=== PATIENT | male | born 1960 | race Caucasian/White ===

== ENCOUNTER 2024-03-20 21:31 | Emergency (ER) | payer MEDICARE, MEDICAID ==
[~2024-03-20] VITALS: Ht 177.8 cm; Wt 102.1 kg
[2024-03-21] MEDS ORDERED: GABAPENTIN 300 MG CAPSULE ONE (04:08)
[2024-03-21] MEDS: GABAPENTIN 100 MG CAPSULE PO ONE (04:16)
[2024-03-21 16:10] VITALS: BP 131/81; TEMP 98.2; O2SAT 97
== END 2024-03-21 16:11 ==
LOC: ER 21:44
DX: Z00.00 Encounter for general adult medical examination without abnormal findings (principal)

== ENCOUNTER 2024-06-15 03:04 | Inpatient (IN) | payer MEDICARE, OTHER ==
[~2024-06-15] VITALS: Ht 182.9 cm; Wt 108.9 kg
[2024-06-15] MEDS: FUROSEMIDE 40 MG/4 ML VIAL IV ONE (04:00)
[2024-06-15] MEDS ORDERED: FUROSEMIDE 40 MG/4 ML VIAL ONE (04:00)
[2024-06-15 04:01] LABS: BASOPHILS % (AUTO) 0.6 % (0.0-2.0); EOSINOPHILS # (AUTO) 0.3 K/uL (0.0-0.7); EOSINOPHILS % (AUTO) 4.1 % (0.0-6.0); HEMATOCRIT 36 % (39-51); HEMOGLOBIN 11.8 g/dL (13.5-17.5); LYMPHOCYTES % (AUTO) 14.1 % (20.0-44.0); MEAN CORPUSCULAR HEMOGLOBIN 31 PG (26.0-33.0); MEAN CORPUSCULAR HGB CONC 33 g/dl (31.0-36.0); MEAN CORPUSCULAR VOLUME 92 fL (80-96); MONOCYTES # (AUTO) 0.9 K/uL (0.1-1.30); MONOCYTES % (AUTO) 13.2 % (2.0-12.0); NEUTROPHILS # (AUTO) 4.7 K/uL (1.8-8.9); PLATELET COUNT (AUTO) 100 K/uL (150-450); RED BLOOD CELL COUNT(AUTO) 3.87 MIL/uL (4.5-6.0); RED CELL DISTRIBUTION WIDTH 18.4 % (11.5-15.0); WHITE BLOOD COUNT (AUTO) 6.8 K/uL (4.3-11.0)
[2024-06-15 04:08] LABS: CALCIUM, SERUM 8.3 mg/dL (8.5-10.1); CREATININE 1.5 mg/dL (0.6-1.3); POTASSIUM 4.2 mmol/L (3.5-5.1)
[2024-06-15 04:20] LABS: ALBUMIN 2.2 g/dL (3.4-5.0); BILIRUBIN,TOTAL 1.9 mg/dL (0.2-1.0); TOTAL PROTEIN, SERUM 5.5 g/dL (6.4-8.2)
[2024-06-15] MEDS ORDERED: ONDANSETRON HCL/PF 4 MG/2 ML VIAL IVP PRN (06:30)
[2024-06-15] MEDS ORDERED: Z GUARD REMEDY 4 OZ OINT TP PRN (06:30)
[2024-06-15 07:51] LABS: BASOPHILS # (AUTO) 0.1 K/uL (0.0-0.2); BASOPHILS % (AUTO) 1.6 % (0.0-2.0); EOSINOPHILS # (AUTO) 0.3 K/uL (0.0-0.7); EOSINOPHILS % (AUTO) 3.8 % (0.0-6.0); HEMATOCRIT 37 % (39-51); HEMOGLOBIN 12.5 g/dL (13.5-17.5); LYMPHOCYTES # (AUTO) 1.1 K/uL (0.8-4.8); LYMPHOCYTES % (AUTO) 15.5 % (20.0-44.0); MEAN CORPUSCULAR HEMOGLOBIN 31 PG (26.0-33.0); MEAN CORPUSCULAR HGB CONC 33 g/dl (31.0-36.0); MEAN CORPUSCULAR VOLUME 93 fL (80-96); MONOCYTES % (AUTO) 14.1 % (2.0-12.0); NEUTROPHILS # (AUTO) 4.4 K/uL (1.8-8.9); PLATELET COUNT (AUTO) 116 K/uL (150-450); RED BLOOD CELL COUNT(AUTO) 4.03 MIL/uL (4.5-6.0); RED CELL DISTRIBUTION WIDTH 18.1 % (11.5-15.0); WHITE BLOOD COUNT (AUTO) 6.8 K/uL (4.3-11.0)
[2024-06-15 08:03] LABS: ALANINE AMINOTRANSFERASE 38 U/L (12-78); ALBUMIN 2.3 g/dL (3.4-5.0); ALKALINE PHOSPHATASE 121 U/L (46-116); ASPARTATE AMINOTRANSFERASE 49 U/L (15-37); BILIRUBIN,DIRECT 0.6 mg/dL (0.0-0.2); BILIRUBIN,TOTAL 2.4 mg/dL (0.2-1.0); CALCIUM, SERUM 8.6 mg/dL (8.5-10.1); CARBON DIOXIDE 29 mmol/L (21-32); CHLORIDE 107 mmol/L (98-107); CREATININE 1.6 mg/dL (0.6-1.3); GLUCOSE 101 mg/dL (74-106); MAGNESIUM 1.5 mg/dL (1.8-2.4); PHOSPHORUS 3.2 mg/dL (2.5-4.9); POTASSIUM 3.9 mmol/L (3.5-5.1); SODIUM SERUM 141 mmol/L (136-145); TOTAL PROTEIN, SERUM 6.1 g/dL (6.4-8.2); UREA NITROGEN, BLOOD 27 mg/dL (7-18)
[2024-06-15 09:00] VITALS: BP 140/98; TEMP 97.7; O2SAT 97
[2024-06-15] MEDS: FUROSEMIDE 20 MG/2 ML VIAL IV SCH (09:28)
[2024-06-15] MEDS: PANTOPRAZOLE 40 MG VIAL IV SCH (09:28)
[2024-06-15] MEDS ORDERED: GABA300C PO (10:40)
[2024-06-15] MEDS ORDERED: TAMS-12 PO (10:40)
[2024-06-15] MEDS ORDERED: FURO40TA5 PO (10:40)
[2024-06-15] MEDS ORDERED: DILT-32 PO (10:40)
[2024-06-15] MEDS ORDERED: CARV6.252 PO (10:40)
[2024-06-15] MEDS ORDERED: SPIR100T PO (10:40)
[2024-06-15] MEDS ORDERED: LEVO150T8 PO (10:40)
[2024-06-15 10:42] VITALS: BP 140/98; TEMP 97.7; O2SAT 97
[2024-06-15] MEDS: FUROSEMIDE 40 MG/4 ML VIAL IV SCH (11:06)
[2024-06-15] MEDS: MAGNESIUM OXIDE 400 MG TABLET PO ONE (11:06)
[2024-06-15 11:46] VITALS: BP 119/75; TEMP 97.8; O2SAT 98
[2024-06-15 17:39] LABS: APPEARANCE,URINE CLEAR (CLEAR); BILIRUBIN,URINE NEGATIVE (NEGATIVE); BLOOD, URINE TRACE-INTA Ery/uL (NEGATIVE); COLOR,URINE YELLOW (YELLOW); CREATININE, URINE < 13.0 MG/DL (30.0-125.0); KETONES,URINE NEGATIVE (NEGATIVE); LEUKOCYTE ESTERASE ,URINE TRACE (NEGATIVE); NITRITE, URINE NEGATIVE (NEGATIVE); PH,URINE 6.5 (5.0-8.0); PROTEIN,URINE NEGATIVE (NEGATIVE); UGLUCOSE NEGATIVE (NEGATIVE); URINE SODIUM, RANDOM 118 mmol/l (40-220); URINE TOTAL PROTEIN 1.2 mg/dL (0-11.9)
[2024-06-15 18:16] LABS: ADD URINE CULTURE NO; BACTERIA,URINE None seen /HPF (None Seen); SQUAMOUS EPITHELIAL CELL,UR 0-2 /HPF (None Seen)
[2024-06-15 18:27] LABS: EOSINOPHIL,URINE None Seen
[2024-06-15 20:00] VITALS: BP 120/83; TEMP 98.1; O2SAT 98
[2024-06-16 06:51] LABS: BASOPHILS # (AUTO) 0.1 K/uL (0.0-0.2); BASOPHILS % (AUTO) 1.3 % (0.0-2.0); EOSINOPHILS # (AUTO) 0.3 K/uL (0.0-0.7); EOSINOPHILS % (AUTO) 4.1 % (0.0-6.0); HEMATOCRIT 41 % (39-51); HEMOGLOBIN 13.7 g/dL (13.5-17.5); LYMPHOCYTES # (AUTO) 1.1 K/uL (0.8-4.8); LYMPHOCYTES % (AUTO) 14.9 % (20.0-44.0); MEAN CORPUSCULAR HEMOGLOBIN 31 PG (26.0-33.0); MEAN CORPUSCULAR HGB CONC 34 g/dl (31.0-36.0); MEAN CORPUSCULAR VOLUME 92 fL (80-96); MONOCYTES % (AUTO) 14.6 % (2.0-12.0); NEUTROPHILS # (AUTO) 4.6 K/uL (1.8-8.9); NEUTROPHILS % (AUTO) 65.1 % (43.0-81.0); PLATELET COUNT (AUTO) 127 K/uL (150-450); RED BLOOD CELL COUNT(AUTO) 4.43 MIL/uL (4.5-6.0); RED CELL DISTRIBUTION WIDTH 18.1 % (11.5-15.0); WHITE BLOOD COUNT (AUTO) 7.1 K/uL (4.3-11.0)
[2024-06-16 07:00] VITALS: BP 113/73; TEMP 97.7; O2SAT 92
[2024-06-16 07:00] LABS: BILIRUBIN,TOTAL 2.5 mg/dL (0.2-1.0); CALCIUM, SERUM 8.8 mg/dL (8.5-10.1); CREATININE 1.4 mg/dL (0.6-1.3); MAGNESIUM 1.2 mg/dL (1.8-2.4); PHOSPHORUS 3.7 mg/dL (2.5-4.9); POTASSIUM 3.8 mmol/L (3.5-5.1); TOTAL PROTEIN, SERUM 5.5 g/dL (6.4-8.2)
[2024-06-16] MEDS: CARVEDILOL 6.25 MG TABLET PO SCH (09:53)
[2024-06-16] MEDS: CLOTRIMAZOLE/BETAMETASONE DIPROPIONATE 15 GM TUBE TP SCH (09:54)
[2024-06-16] MEDS: Magnesium 1GM/D5W 100ML PREMIX 100 ML IV SCH (11:39)
[2024-06-16 16:00] VITALS: BP 101/78; TEMP 98.1; O2SAT 98
[2024-06-16] MEDS: GABAPENTIN 300 MG CAPSULE PO SCH (17:00)
[2024-06-16 20:00] VITALS: BP 102/58; TEMP 98.1; O2SAT 94
[2024-06-16] MEDS: CLINDAMYCIN 600 MG in IV NS 0.9% 46 ML IV SCH (20:56)
[2024-06-16] MEDS: TAMSULOSIN 0.4 MG CAP.SR.24H PO SCH (21:42)
[2024-06-17 06:09] LABS: PTH, INTACT 4 pg/mL (15-65)
[2024-06-17 07:00] VITALS: BP 108/63; TEMP 97.7; O2SAT 94
[2024-06-17 07:30] LABS: BASOPHILS # (AUTO) 0.1 K/uL (0.0-0.2); BASOPHILS % (AUTO) 1.2 % (0.0-2.0); EOSINOPHILS # (AUTO) 0.2 K/uL (0.0-0.7); EOSINOPHILS % (AUTO) 2.8 % (0.0-6.0); HEMATOCRIT 39 % (39-51); HEMOGLOBIN 12.8 g/dL (13.5-17.5); LYMPHOCYTES # (AUTO) 0.9 K/uL (0.8-4.8); LYMPHOCYTES % (AUTO) 11.9 % (20.0-44.0); MEAN CORPUSCULAR HEMOGLOBIN 30 PG (26.0-33.0); MEAN CORPUSCULAR HGB CONC 33 g/dl (31.0-36.0); MEAN CORPUSCULAR VOLUME 91 fL (80-96); MONOCYTES % (AUTO) 13.4 % (2.0-12.0); NEUTROPHILS # (AUTO) 5.2 K/uL (1.8-8.9); NEUTROPHILS % (AUTO) 70.7 % (43.0-81.0); PLATELET COUNT (AUTO) 129 K/uL (150-450); RED BLOOD CELL COUNT(AUTO) 4.25 MIL/uL (4.5-6.0); RED CELL DISTRIBUTION WIDTH 17.8 % (11.5-15.0); WHITE BLOOD COUNT (AUTO) 7.3 K/uL (4.3-11.0)
[2024-06-17 08:05] LABS: CALCIUM, SERUM 9.1 mg/dL (8.5-10.1); CREATININE 1.2 mg/dL (0.6-1.3); POTASSIUM 4.4 mmol/L (3.5-5.1)
[2024-06-17] MEDS: LEVOTHYROXINE SODIUM 75 MCG TABLET PO SCH (08:17)
[2024-06-17] MEDS: SPIRONOLACTONE 25 MG TABLET PO SCH (09:00)
[2024-06-17] MEDS: DILTIAZEM HCL CD 120 MG PO SCH (09:01)
[2024-06-17] MEDS: PANTOPRAZOLE 40 MG TABLET.DR PO SCH (09:02)
[2024-06-17] MEDS: APIXABAN 5 MG TABLET PO SCH (09:03)
[2024-06-17] MEDS: Magnesium 1GM/D5W 100ML PREMIX 100 ML IV SCH (10:00)
[2024-06-17] MEDS: ACETAMINOPHEN 325 MG TABLET PO PRN (12:11)
[2024-06-17] MEDS: CLINDAMYCIN HCL 150 MG CAPSULE PO SCH (12:11)
[2024-06-17 13:08] LABS: *SPE A/G RATIO 0.9 (0.7-1.7); *SPE ALBUMIN 2.4 g/dL (2.9-4.4); *SPE ALPHA-1-GLOBULIN 0.2 g/dL (0.0-0.4); *SPE ALPHA-2-GLOBULIN 0.4 g/dL (0.4-1.0); *SPE BETA GLOBULIN 0.8 g/dL (0.7-1.3); *SPE GLOBULIN, TOTAL 2.8 g/dL (2.2-3.9); *SPE M-SPIKE Not Observed g/dL (Not Observed); *SPE PROTEIN TOTAL 5.2 g/dL (6.0-8.5); *SPEGAMMA GLOBULIN 1.4 g/dL (0.4-1.8)
[2024-06-17 16:00] VITALS: BP 105/76; TEMP 97.3; O2SAT 96
[2024-06-17] MEDS: LACTULOSE 10 G/15 ML UDC (PYXIS) PO SCH (17:03)
[2024-06-17 20:00] VITALS: BP 132/75; TEMP 97.9; O2SAT 96
[2024-06-18 06:45] LABS: BILIRUBIN,DIRECT 0.7 mg/dL (0.0-0.2); BILIRUBIN,TOTAL 2.8 mg/dL (0.2-1.0); TOTAL PROTEIN, SERUM 5.5 g/dL (6.4-8.2)
[2024-06-18 08:00] VITALS: BP 113/81; TEMP 98.1; O2SAT 95
[2024-06-18] MEDS ORDERED: LACTULOSE 10 G/15 ML UDC (PYXIS) PO PRN (10:30)
[2024-06-18 16:00] VITALS: BP 122/76; TEMP 98.4; O2SAT 96
[2024-06-18 20:00] VITALS: BP 112/67; TEMP 98.2; O2SAT 97
[2024-06-19 07:27] LABS: BILIRUBIN,DIRECT 0.6 mg/dL (0.0-0.2); BILIRUBIN,TOTAL 1.9 mg/dL (0.2-1.0); TOTAL PROTEIN, SERUM 5.5 g/dL (6.4-8.2)
[2024-06-19 08:00] VITALS: BP 122/75; TEMP 97.7; O2SAT 96
[2024-06-19] MEDS: ALBUTEROL FS 2.5 MG/3 ML VIAL.NEB NEB PRN (12:53)
[2024-06-19 13:01] VITALS: O2SAT 95
[2024-06-19 13:16] VITALS: O2SAT 95
[2024-06-19 16:00] VITALS: BP 122/86; TEMP 98.2; O2SAT 98
[2024-06-19 20:00] VITALS: BP 120/83; TEMP 98.1; O2SAT 98
[2024-06-19 20:03] VITALS: BP 120/83; TEMP 98.1; O2SAT 98
[2024-06-20 07:16] LABS: BASOPHILS # (AUTO) 0.1 K/uL (0.0-0.2); BASOPHILS % (AUTO) 0.7 % (0.0-2.0); EOSINOPHILS # (AUTO) 0.4 K/uL (0.0-0.7); EOSINOPHILS % (AUTO) 5.1 % (0.0-6.0); HEMATOCRIT 40 % (39-51); LYMPHOCYTES # (AUTO) 1.4 K/uL (0.8-4.8); MEAN CORPUSCULAR HEMOGLOBIN 31 PG (26.0-33.0); MEAN CORPUSCULAR HGB CONC 33 g/dl (31.0-36.0); MEAN CORPUSCULAR VOLUME 94 fL (80-96); MONOCYTES # (AUTO) 1.2 K/uL (0.1-1.30); MONOCYTES % (AUTO) 14.5 % (2.0-12.0); NEUTROPHILS # (AUTO) 5.1 K/uL (1.8-8.9); NEUTROPHILS % (AUTO) 62.7 % (43.0-81.0); PLATELET COUNT (AUTO) 129 K/uL (150-450); RED BLOOD CELL COUNT(AUTO) 4.24 MIL/uL (4.5-6.0); RED CELL DISTRIBUTION WIDTH 18.6 % (11.5-15.0); WHITE BLOOD COUNT (AUTO) 8.1 K/uL (4.3-11.0)
[2024-06-20 08:00] VITALS: BP 116/80; TEMP 97.9; O2SAT 99
[2024-06-20 08:04] LABS: ALBUMIN 1.9 g/dL (3.4-5.0); BILIRUBIN,TOTAL 1.6 mg/dL (0.2-1.0); CALCIUM, SERUM 8.3 mg/dL (8.5-10.1); CREATININE 1.2 mg/dL (0.6-1.3); MAGNESIUM 1.8 mg/dL (1.8-2.4); PHOSPHORUS 3.3 mg/dL (2.5-4.9); POTASSIUM 4.6 mmol/L (3.5-5.1); TOTAL PROTEIN, SERUM 5.5 g/dL (6.4-8.2)
[2024-06-20] MEDS: LACTULOSE 10 G/15 ML UDC (PYXIS) PO SCH (14:53)
[2024-06-20 15:41] VITALS: BP 124/91; TEMP 97.2; O2SAT 98
[2024-06-20 20:00] VITALS: BP 17/89; TEMP 98.4; O2SAT 98
[2024-06-21 08:00] VITALS: TEMP 97.9; O2SAT 96
[2024-06-21] MEDS ORDERED: PNEUMOCOCCAL 23-VAL P-SAC VAC 0.5 ML VIAL SQ ONE (13:30)
[2024-06-21 16:00] VITALS: BP 128/77; TEMP 98.2; O2SAT 99
[2024-06-21 20:01] VITALS: BP 103/82; TEMP 97.9; O2SAT 100
[2024-06-22 07:30] VITALS: BP 115/76; TEMP 98.1; O2SAT 93
[2024-06-22 09:06] VITALS: BP 115/76
[2024-06-22] MEDS: PNEUMOC 20-VAL CONJ-DIP CRM/PF 0.5 ML SYRINGE IM ONE (12:40)
[2024-06-22] MEDS ORDERED: PANT40TA49 PO (15:39)
[2024-06-22] MEDS ORDERED: ALBUT2 NEB (15:39)
[2024-06-22] MEDS ORDERED: CLOT15CR5 TP (15:39)
[2024-06-22] MEDS ORDERED: LACT10SO58 PO (15:39)
== END 2024-06-22 18:15 | disposition home or self-care (01) | DRG 602 ==
LOC: ER 03:05 → MED 06:29 → TELE 08:34 → MED 14:14
PROVIDERS: ATTEND Nurse Practitioner Acute Care
DX: L03.116 Cellulitis of left lower limb (principal); I50.33 Acute on chronic diastolic (congestive) heart failure; I13.0 Hypertensive heart and chronic kidney disease with heart failure and stage 1 through stage 4 chronic kidney disease, or unspecified chronic kidney disease; E44.0 Moderate protein-calorie malnutrition; N17.9 Acute kidney failure, unspecified; L03.115 Cellulitis of right lower limb; N49.2 Inflammatory disorders of scrotum; D69.6 Thrombocytopenia, unspecified; N48.89 Other specified disorders of penis; E88.09 Other disorders of plasma-protein metabolism, not elsewhere classified; N44.8 Other noninflammatory disorders of the testis; D64.9 Anemia, unspecified; E03.9 Hypothyroidism, unspecified; E83.42 Hypomagnesemia; M89.8X9 Other specified disorders of bone, unspecified site; N18.9 Chronic kidney disease, unspecified; Z95.0 Presence of cardiac pacemaker; Z86.19 Personal history of other infectious and parasitic diseases; E80.6 Other disorders of bilirubin metabolism; R74.01 Elevation of levels of liver transaminase levels; Z68.32 Body mass index [BMI] 32.0-32.9, adult; R94.6 Abnormal results of thyroid function studies
CPT/HCPCS: 36415; 71045-TC; 76536-TC; 76705-TC; 76770-TC; 78226; 80048-TC; 80053-TC; 80061-TC; 80076-TC; 81001; 82140-TC; 82550-TC; 82570-TC; 83690-TC; 83735-TC; 83880; 83970; 84100-TC; 84155; 84165; 84300-TC; 84439-TC; 84443-TC; 84484-TC; 85025-TC; 93307-TC; 94799-TC; 97112-TC; 97116-TC; 97530-TC; A4223; A9537; G0378; J1940; J2470; J3475; J3490

== ENCOUNTER 2025-02-19 21:50 | Inpatient (IN) | payer MEDICAID, OTHER ==
[~2025-02-19] VITALS: Ht 162.6 cm; Wt 91.6 kg
[~2025-02-19 21:50] MED LIST: ALBUT2 NEB; CARV6.252 PO; CLOT15CR5 TP; DILT-32 PO; FURO40TA5 PO; GABA300C PO; LACT10SO58 PO; LEVO150T8 PO; PANT40TA49 PO; SPIR100T PO; TAMS-12 PO
[2025-02-19 23:43] LABS: BASOPHILS # (AUTO) 0.1 K/uL (0.0-0.2); BASOPHILS % (AUTO) 0.9 % (0.0-2.0); EOSINOPHILS # (AUTO) 1.2 K/uL (0.0-0.7); EOSINOPHILS % (AUTO) 18.6 % (0.0-6.0); HEMATOCRIT 34 % (39-51); HEMOGLOBIN 11.4 g/dL (13.5-17.5); LYMPHOCYTES # (AUTO) 1.2 K/uL (0.8-4.8); LYMPHOCYTES % (AUTO) 18.4 % (20.0-44.0); MEAN CORPUSCULAR HEMOGLOBIN 32 PG (26.0-33.0); MEAN CORPUSCULAR HGB CONC 34 g/dl (31.0-36.0); MEAN CORPUSCULAR VOLUME 94 fL (80-96); MONOCYTES # (AUTO) 0.5 K/uL (0.1-1.30); MONOCYTES % (AUTO) 8.4 % (2.0-12.0); NEUTROPHILS # (AUTO) 3.5 K/uL (1.8-8.9); NEUTROPHILS % (AUTO) 53.7 % (43.0-81.0); PLATELET COUNT (AUTO) 108 K/uL (150-450); RED BLOOD CELL COUNT(AUTO) 3.58 MIL/uL (4.5-6.0); RED CELL DISTRIBUTION WIDTH 17.8 % (11.5-15.0); WHITE BLOOD COUNT (AUTO) 6.5 K/uL (4.3-11.0)
[2025-02-19 23:55] LABS: LACTIC ACID 1.3 mmol/L (0.4-2.0)
[2025-02-19 23:59] LABS: CALCIUM, SERUM 8.3 mg/dL (8.5-10.1); CARBON DIOXIDE 23 mmol/L (21-32); CHLORIDE 111 mmol/L (98-107); CREATININE 0.9 mg/dL (0.6-1.3); GLUCOSE 98 mg/dL (74-106); SODIUM SERUM 143 mmol/L (136-145); UREA NITROGEN, BLOOD 14 mg/dL (7-18)
[2025-02-20 00:04] LABS: ALANINE AMINOTRANSFERASE 28 U/L (12-78); ALBUMIN 1.9 g/dL (3.4-5.0); ALKALINE PHOSPHATASE 215 U/L (46-116); ASPARTATE AMINOTRANSFERASE 30 U/L (15-37); BILIRUBIN,DIRECT 0.5 mg/dL (0.0-0.2); BILIRUBIN,TOTAL 1.6 mg/dL (0.2-1.0); TOTAL PROTEIN, SERUM 6.2 g/dL (6.4-8.2)
[2025-02-20 00:06] LABS: ACETAMINOPHEN <10 ug/ml (10-30); ALCOHOL, BLOOD < 3 mg/dL (0-10); SALICYLATE < 0.2 mg/dL (2.8-20.0)
[2025-02-20 00:46] LABS: APPEARANCE,URINE CLEAR (CLEAR); BILIRUBIN,URINE NEGATIVE (NEGATIVE); BLOOD, URINE NEGATIVE Ery/uL (NEGATIVE); COLOR,URINE YELLOW (YELLOW); KETONES,URINE NEGATIVE (NEGATIVE); LEUKOCYTE ESTERASE ,URINE NEGATIVE (NEGATIVE); NITRITE, URINE NEGATIVE (NEGATIVE); PROTEIN,URINE NEGATIVE (NEGATIVE); UGLUCOSE NEGATIVE (NEGATIVE)
[2025-02-20 01:02] LABS: AMPHETAMINE, URINE NEGATIVE (NEGATIVE); BARBITURATE, URINE NEGATIVE (NEGATIVE); BENZODIAZEPINE, URINE NEGATIVE (NEGATIVE); CANNABINOID, URINE NEGATIVE (NEGATIVE); COCCAINE, URINE NEGATIVE (NEGATIVE); OPIATE, URINE NEGATIVE (NEGATIVE); PHENCYCLIDINE SCREEN,URINE NEGATIVE (NEGATIVE)
[2025-02-20 01:10] LABS: ADD URINE CULTURE NO; BACTERIA,URINE Few /HPF (None Seen); RBC,URINE 0-2 /HPF (0-2); SQUAMOUS EPITHELIAL CELL,UR Moderate /HPF (None Seen)
[2025-02-20] MEDS ORDERED: Z GUARD REMEDY 4 OZ OINT TP PRN (02:00)
[2025-02-20] MEDS ORDERED: ACETAMINOPHEN 325 MG TABLET PO PRN (02:00)
[2025-02-20] MEDS ORDERED: MAGNESIUM HYDROXIDE 30 ML UDC PO PRN (02:00)
[2025-02-20] MEDS: ENOXAPARIN SODIUM 40 MG/0.4 ML DISP.SYRIN SQ SCH (02:00)
[2025-02-20] MEDS ORDERED: ONDANSETRON HCL/PF 4 MG/2 ML VIAL IVP PRN (02:00)
[2025-02-20 02:58] LABS: T4 (THYROXINE) 4.7 ug/dL (4.7-13.3)
[2025-02-20] MEDS ORDERED: ENOXAPARIN SODIUM 40 MG/0.4 ML DISP.SYRIN SQ ONE (03:54)
[2025-02-20] MEDS ORDERED: LACTULOSE UDC 200 G in SODIUM CHLORIDE IRRIG SOLUTION 400 ML IR SCH ×2 (04:00→07:30)
[2025-02-20 04:02] VITALS: BP 128/96; TEMP 97.5; O2SAT 95
[2025-02-20] MEDS: PANTOPRAZOLE 40 MG TABLET.DR PO SCH (07:46)
[2025-02-20 08:30] VITALS: BP 94/63; TEMP 97.5; O2SAT 97
[2025-02-20] MEDS: LACTULOSE UDC 200 G in SODIUM CHLORIDE IRRIG SOLUTION 400 ML IR SCH (08:59)
[2025-02-20] MEDS: hydrALAZINE HCL IV 20 MG VIAL IV PRN (12:29)
[2025-02-20 13:30] VITALS: BP 95/55; TEMP 97.5; O2SAT 98
[2025-02-20 16:00] VITALS: BP 112/57; TEMP 97.7; O2SAT 97
[2025-02-20 16:55] VITALS: BP 112/57; TEMP 97.7; O2SAT 97
[2025-02-20 20:00] VITALS: BP 94/75; TEMP 98.2; O2SAT 92
[2025-02-21] VITALS: BP 124/64; TEMP 98.1; O2SAT 17
[2025-02-21 05:00] VITALS: BP 121/61; TEMP 98.6; O2SAT 92
[2025-02-21 07:06] LABS: BASOPHILS # (AUTO) 0.1 K/uL (0.0-0.2); BASOPHILS % (AUTO) 1.2 % (0.0-2.0); EOSINOPHILS # (AUTO) 0.9 K/uL (0.0-0.7); EOSINOPHILS % (AUTO) 12.6 % (0.0-6.0); HEMATOCRIT 33 % (39-51); HEMOGLOBIN 10.9 g/dL (13.5-17.5); LYMPHOCYTES # (AUTO) 1.2 K/uL (0.8-4.8); LYMPHOCYTES % (AUTO) 16.4 % (20.0-44.0); MEAN CORPUSCULAR HEMOGLOBIN 31 PG (26.0-33.0); MEAN CORPUSCULAR HGB CONC 33 g/dl (31.0-36.0); MEAN CORPUSCULAR VOLUME 92 fL (80-96); MONOCYTES # (AUTO) 0.8 K/uL (0.1-1.30); MONOCYTES % (AUTO) 10.8 % (2.0-12.0); NEUTROPHILS # (AUTO) 4.3 K/uL (1.8-8.9); PLATELET COUNT (AUTO) 135 K/uL (150-450); RED BLOOD CELL COUNT(AUTO) 3.52 MIL/uL (4.5-6.0); RED CELL DISTRIBUTION WIDTH 16.8 % (11.5-15.0); WHITE BLOOD COUNT (AUTO) 7.2 K/uL (4.3-11.0)
[2025-02-21 07:30] VITALS: BP 122/70; TEMP 98.8; O2SAT 97
[2025-02-21 07:48] LABS: ALBUMIN 1.9 g/dL (3.4-5.0); BILIRUBIN,DIRECT 0.7 mg/dL (0.0-0.2); BILIRUBIN,TOTAL 2.3 mg/dL (0.2-1.0); CALCIUM, SERUM 8.5 mg/dL (8.5-10.1); CREATININE 0.9 mg/dL (0.6-1.3); MAGNESIUM 1.7 mg/dL (1.8-2.4); POTASSIUM 3.5 mmol/L (3.5-5.1); TOTAL PROTEIN, SERUM 5.8 g/dL (6.4-8.2)
[2025-02-21] MEDS ORDERED: ACET325T53 PO (09:02)
[2025-02-21] MEDS ORDERED: THIA100T74 PO (09:02)
[2025-02-21] MEDS ORDERED: PANT20TA17 PO (09:02)
[2025-02-21] MEDS ORDERED: APIX5TAB PO (09:02)
[2025-02-21] MEDS ORDERED: RISP0.5T65 PO (09:02)
[2025-02-21] MEDS ORDERED: BISA10SU11 RC (09:02)
[2025-02-21] MEDS ORDERED: AMIN30LI66 PO (09:02)
[2025-02-21] MEDS ORDERED: LACT10SO3 PO (09:02)
[2025-02-21] MEDS ORDERED: LEVO200T8 PO (09:02)
[2025-02-21] MEDS ORDERED: ACET-73 PO (09:02)
[2025-02-21] MEDS ORDERED: LORA-259 PO (09:02)
[2025-02-21] MEDS ORDERED: ASCO500T10 PO (09:02)
[2025-02-21] MEDS ORDERED: POLY17PO4 PO (09:02)
[2025-02-21] MEDS ORDERED: MULT-594 PO (09:02)
[2025-02-21] MEDS ORDERED: METO25TA20 PO (09:02)
[2025-02-21] MEDS ORDERED: RIFA550T PO (09:02)
[2025-02-21] MEDS ORDERED: MAGN400T52 PO (09:02)
[2025-02-21] MEDS: Magnesium 1GM/D5W 100ML PREMIX 100 ML IV SCH (10:27)
[2025-02-21] MEDS ORDERED: BISACODYL SUPP (10 MG) 10 MG/SUPP.RECT SUPP.RECT RC PRN (11:00)
[2025-02-21] MEDS ORDERED: ACETAMINOPHEN ES 500 MG TABLET PO PRN (11:00)
[2025-02-21] MEDS ORDERED: LORAZEPAM 1 MG TABLET PO PRN (11:00)
[2025-02-21] MEDS ORDERED: ACETAMINOPHEN 325 MG TABLET PO PRN (11:00)
[2025-02-21] MEDS: IV D5/0.45 NACL 1,000 ML IV SCH (13:25)
[2025-02-21 16:00] VITALS: BP 106/57; TEMP 98.2; O2SAT 96
[2025-02-21] MEDS: METOPROLOL TARTRATE 25 MG TABLET PO SCH (17:00)
[2025-02-21] MEDS: MAGNESIUM OXIDE 400 MG TABLET PO SCH (17:00)
[2025-02-21] MEDS: APIXABAN 5 MG TABLET PO SCH (17:00)
[2025-02-21] MEDS: RIFAXIMIN 550 MG TABLET PO SCH (17:00)
[2025-02-21] MEDS: POLYETHYLENE GLYCOL 3350 17 GM POWD.PACK PO SCH (17:00)
[2025-02-21] MEDS: LACTULOSE 10 G/15 ML UDC (PYXIS) PO SCH (17:00)
[2025-02-21] MEDS: risperiDONE 0.25 MG TABLET PO SCH (17:00)
[2025-02-21 20:00] VITALS: BP 123/78; TEMP 98.2; O2SAT 99
[2025-02-21] MEDS: LACTULOSE 10 G/15 ML UDC (PYXIS) PO ONE (21:49)
[2025-02-22] VITALS: BP 104/67; TEMP 98.8; O2SAT 97
[2025-02-22] MEDS ORDERED: AMIODARONE 450 MG in IV D5W 241 ML IV PRN (01:30)
[2025-02-22] MEDS: AMIODARONE 150 MG/3 ML VIAL IV ONE ×2 (02:23)
[2025-02-22] MEDS: Magnesium 1GM/D5W 100ML PREMIX 100 ML IV SCH (02:28)
[2025-02-22] MEDS: AMIODARONE 150 MG in IV D5W 100 ML IV ONE (02:38)
[2025-02-22] MEDS: AMIODARONE 450 MG in IV D5W 241 ML IV PRN (03:01)
[2025-02-22] MEDS ORDERED: PERMETHRIN 5% CRM 60 GM TUBE TP ONE (03:30)
[2025-02-22] MEDS: PERMETHRIN 5% CRM 60 GM TUBE TP ONE (03:34)
[2025-02-22] MEDS: LEVOTHYROXINE SODIUM 100 MCG TABLET PO SCH (08:03)
[2025-02-22 08:10] VITALS: BP 111/66; TEMP 98.8; O2SAT 98
[2025-02-22] MEDS: TAMSULOSIN 0.4 MG CAP.SR.24H PO SCH (08:54)
[2025-02-22] MEDS: MULTIVITAMINS,THERAGRAN 1 UDTAB TABLET PO SCH (08:55)
[2025-02-22] MEDS: THIAMINE HCL 100 MG TABLET PO SCH (08:56)
[2025-02-22] MEDS: ASCORBIC ACID 500 MG TABLET PO SCH (08:56)
[2025-02-22] MEDS ORDERED: ENOXAPARIN SODIUM 80 MG/0.8 ML DISP.SYRIN SQ SCH (09:00)
[2025-02-22] MEDS: PROSOURCE / PROSTAT (PYXIS) 30 ML UDC PO SCH (09:37)
[2025-02-22 12:05] VITALS: BP 114/65; TEMP 97.5; O2SAT 98
[2025-02-22 12:35] LABS: BASOPHILS # (AUTO) 0.2 K/uL (0.0-0.2); BASOPHILS % (AUTO) 2.5 % (0.0-2.0); EOSINOPHILS # (AUTO) 0.8 K/uL (0.0-0.7); EOSINOPHILS % (AUTO) 11.7 % (0.0-6.0); HEMATOCRIT 30 % (39-51); HEMOGLOBIN 10.2 g/dL (13.5-17.5); LYMPHOCYTES # (AUTO) 1.2 K/uL (0.8-4.8); LYMPHOCYTES % (AUTO) 17.5 % (20.0-44.0); MEAN CORPUSCULAR HEMOGLOBIN 32 PG (26.0-33.0); MEAN CORPUSCULAR HGB CONC 35 g/dl (31.0-36.0); MEAN CORPUSCULAR VOLUME 92 fL (80-96); MONOCYTES # (AUTO) 0.8 K/uL (0.1-1.30); MONOCYTES % (AUTO) 11.6 % (2.0-12.0); NEUTROPHILS # (AUTO) 3.8 K/uL (1.8-8.9); NEUTROPHILS % (AUTO) 56.7 % (43.0-81.0); PLATELET COUNT (AUTO) 107 K/uL (150-450); RED BLOOD CELL COUNT(AUTO) 3.22 MIL/uL (4.5-6.0); RED CELL DISTRIBUTION WIDTH 16.6 % (11.5-15.0); WHITE BLOOD COUNT (AUTO) 6.6 K/uL (4.3-11.0)
[2025-02-22 12:46] LABS: CALCIUM, SERUM 8.2 mg/dL (8.5-10.1); CREATININE 1.1 mg/dL (0.6-1.3)
[2025-02-22] MEDS: POTASSIUM CL. PREMIX PERIPHER. 50 ML IV SCH (14:00)
[2025-02-22] MEDS: IV D5/0.45 NACL 1,000 ML IV PRN (15:45)
[2025-02-22 16:10] VITALS: BP 115/69; TEMP 97.7; O2SAT 98
[2025-02-22 20:00] VITALS: BP 127/89; TEMP 97.7; O2SAT 97
[2025-02-23] VITALS: BP 135/81; TEMP 98.2; O2SAT 98
[2025-02-23 04:00] VITALS: BP 135/85; TEMP 98.2; O2SAT 100
[2025-02-23 08:00] VITALS: BP 125/84; TEMP 98.2; O2SAT 98
[2025-02-23 08:03] LABS: BASOPHILS # (AUTO) 0.2 K/uL (0.0-0.2); BASOPHILS % (AUTO) 2.4 % (0.0-2.0); EOSINOPHILS # (AUTO) 1.3 K/uL (0.0-0.7); EOSINOPHILS % (AUTO) 18.7 % (0.0-6.0); HEMATOCRIT 32 % (39-51); LYMPHOCYTES # (AUTO) 1.1 K/uL (0.8-4.8); LYMPHOCYTES % (AUTO) 15.7 % (20.0-44.0); MEAN CORPUSCULAR HEMOGLOBIN 31 PG (26.0-33.0); MEAN CORPUSCULAR HGB CONC 34 g/dl (31.0-36.0); MEAN CORPUSCULAR VOLUME 92 fL (80-96); MONOCYTES # (AUTO) 0.7 K/uL (0.1-1.30); MONOCYTES % (AUTO) 10.4 % (2.0-12.0); NEUTROPHILS # (AUTO) 3.8 K/uL (1.8-8.9); NEUTROPHILS % (AUTO) 52.8 % (43.0-81.0); PLATELET COUNT (AUTO) 113 K/uL (150-450); RED BLOOD CELL COUNT(AUTO) 3.52 MIL/uL (4.5-6.0); RED CELL DISTRIBUTION WIDTH 16.4 % (11.5-15.0); WHITE BLOOD COUNT (AUTO) 7.2 K/uL (4.3-11.0)
[2025-02-23 08:26] LABS: CALCIUM, SERUM 7.8 mg/dL (8.5-10.1); MAGNESIUM 1.7 mg/dL (1.8-2.4); PHOSPHORUS 2.7 mg/dL (2.5-4.9); POTASSIUM 3.3 mmol/L (3.5-5.1)
[2025-02-23] MEDS: POTASSIUM CHLORIDE 20 MEQ TAB.PRT.SR PO SCH (10:00)
[2025-02-23] MEDS: Magnesium 1GM/D5W 100ML PREMIX 100 ML IV SCH (10:41)
[2025-02-23] MEDS ORDERED: VITAL AF 1.2 1,000 ML BOTTLE GT PRN (11:00)
[2025-02-23] MEDS: POTASSIUM CHLORIDE 20 MEQ POWDER PACKET PO ONE (11:37)
[2025-02-23 12:00] VITALS: BP 128/76; TEMP 97.9; O2SAT 98
[2025-02-23 16:00] VITALS: BP 129/75; TEMP 97.5; O2SAT 98
[2025-02-23 20:00] VITALS: BP 104/72; TEMP 97.9; O2SAT 100
[2025-02-24] VITALS: BP 119/89; TEMP 98; O2SAT 100
[2025-02-24 04:00] VITALS: BP 121/77; TEMP 97.7; O2SAT 100
[2025-02-24 06:36] LABS: BASOPHILS % (AUTO) 0.3 % (0.0-2.0); EOSINOPHILS # (AUTO) 1.3 K/uL (0.0-0.7); HEMATOCRIT 32 % (39-51); HEMOGLOBIN 11.2 g/dL (13.5-17.5); LYMPHOCYTES # (AUTO) 1.3 K/uL (0.8-4.8); LYMPHOCYTES % (AUTO) 16.5 % (20.0-44.0); MEAN CORPUSCULAR HEMOGLOBIN 32 PG (26.0-33.0); MEAN CORPUSCULAR HGB CONC 35 g/dl (31.0-36.0); MEAN CORPUSCULAR VOLUME 93 fL (80-96); MONOCYTES # (AUTO) 0.9 K/uL (0.1-1.30); MONOCYTES % (AUTO) 11.4 % (2.0-12.0); NEUTROPHILS # (AUTO) 4.2 K/uL (1.8-8.9); NEUTROPHILS % (AUTO) 54.8 % (43.0-81.0); PLATELET COUNT (AUTO) 101 K/uL (150-450); RED BLOOD CELL COUNT(AUTO) 3.44 MIL/uL (4.5-6.0); RED CELL DISTRIBUTION WIDTH 16.5 % (11.5-15.0); WHITE BLOOD COUNT (AUTO) 7.7 K/uL (4.3-11.0)
[2025-02-24 07:42] LABS: ALBUMIN 1.8 g/dL (3.4-5.0); BILIRUBIN,TOTAL 2.3 mg/dL (0.2-1.0); CALCIUM, SERUM 7.8 mg/dL (8.5-10.1); CREATININE 1.1 mg/dL (0.6-1.3); MAGNESIUM 1.8 mg/dL (1.8-2.4); PHOSPHORUS 2.8 mg/dL (2.5-4.9); POTASSIUM 3.4 mmol/L (3.5-5.1); TOTAL PROTEIN, SERUM 5.9 g/dL (6.4-8.2)
[2025-02-24 08:00] VITALS: BP 120/86; TEMP 97.9; O2SAT 95
[2025-02-24] MEDS: POTASSIUM CHLORIDE 20 MEQ TAB.PRT.SR PO SCH (08:24)
[2025-02-24 12:00] VITALS: BP 129/84; TEMP 98; O2SAT 98
[2025-02-24] MEDS ORDERED: IOHEXOL-350 100 ML VIAL IV ONE (14:55)
[2025-02-24] MEDS ORDERED: IV NS 0.9% 250 ML IV ONE (14:55)
[2025-02-24 16:00] VITALS: BP 126/70; TEMP 97.7; O2SAT 98
[2025-02-24 20:00] VITALS: BP 121/81; TEMP 97.3; O2SAT 97
[2025-02-25] VITALS: BP 136/73; TEMP 97.9; O2SAT 99
[2025-02-25 04:00] VITALS: BP 112/71; TEMP 98.4; O2SAT 98
[2025-02-25 08:00] VITALS: BP 115/64; TEMP 97.5; O2SAT 94
[2025-02-25] MEDS ORDERED: LACT10SO29 PO (14:41)
[2025-02-25 16:00] VITALS: BP 107/65; TEMP 97.3; O2SAT 99
[2025-02-25 17:06] VITALS: BP 107/65
== END 2025-02-25 21:26 | DRG 442 ==
LOC: ER 21:54 → TELE 02-20 03:30 → TELE-TD 02-22 02:19 → TELE1 02-23 09:38 → MEDSG1 02-25 07:49
PROVIDERS: ADMIT Nurse Practitioner Family; ATTEND Nurse Practitioner Acute Care
PROC: 05H933Z Insertion of Infusion Device into Right Brachial Vein, Percutaneous Approach (ICD-10-PCS; principal; 2025-02-22)
DX: K76.82 Hepatic encephalopathy (principal); D68.59 Other primary thrombophilia; E44.1 Mild protein-calorie malnutrition; E72.20 Disorder of urea cycle metabolism, unspecified; K21.9 Gastro-esophageal reflux disease without esophagitis; I50.9 Heart failure, unspecified; I11.0 Hypertensive heart disease with heart failure; K74.60 Unspecified cirrhosis of liver; Z79.890 Hormone replacement therapy; Z79.899 Other long term (current) drug therapy; F39 Unspecified mood [affective] disorder; Z79.51 Long term (current) use of inhaled steroids; E80.6 Other disorders of bilirubin metabolism; D64.9 Anemia, unspecified; E03.9 Hypothyroidism, unspecified; N40.0 Benign prostatic hyperplasia without lower urinary tract symptoms; E66.9 Obesity, unspecified; Z68.35 Body mass index [BMI] 35.0-35.9, adult; E88.09 Other disorders of plasma-protein metabolism, not elsewhere classified; R13.10 Dysphagia, unspecified; I48.91 Unspecified atrial fibrillation
CPT/HCPCS: 36410; 36415; 70450-TC; 70496-TC; 70498-TC; 71045-TC; 76700-TC; 80048-TC; 80053-TC; 80076-TC; 81001; 82140-TC; 82962-TC; 83605-TC; 83735-TC; 83880; 84100-TC; 84436-TC; 84439-TC; 84443-TC; 84480; 84481; 84484-TC; 85025-TC; 87040-TC; 87081-TC; 87086-TC; 92526; 92611-TC; 93307-TC; 93971-TC; A4217; A4223; G0378; G0480; J0282; J0360; J1650; J3475; J3480; J3490; J7050; J7060; Q9967

== ENCOUNTER 2025-06-12 18:22 | Inpatient (IN) | payer MEDICARE, MEDICAID ==
[~2025-06-12] VITALS: Ht 172.7 cm; Wt 87.1 kg
[~2025-06-12 18:22] MED LIST changes: +ACET-73 PO; +ACET325T53 PO; -ALBUT2 NEB; +AMIN30LI66 PO; +APIX5TAB PO; +ASCO500T10 PO; +BISA10SU11 RC; -CARV6.252 PO; -CLOT15CR5 TP; -DILT-32 PO; -FURO40TA5 PO; -GABA300C PO; +IPRA3AMP23 IH; +LACT10SO29 PO; +LACT10SO3 PO; -LACT10SO58 PO; -LEVO150T8 PO; +LEVO200T8 PO; +LORA-259 PO; +MAGN400T52 PO; +METO25TA20 PO; +MULT-594 PO; +PANT20TA17 PO; -PANT40TA49 PO; +POLY17PO4 PO; +RIFA550T PO; +RISP0.5T65 PO; -SPIR100T PO; +THIA100T74 PO
[2025-06-12 19:11] LABS: PLATELET COUNT (AUTO) 179 K/uL (150-450); RED BLOOD CELL COUNT(AUTO) 4.15 MIL/uL (4.5-6.0); RED CELL DISTRIBUTION WIDTH 16.9 % (11.5-15.0); WHITE BLOOD COUNT (AUTO) 9.5 K/uL (4.3-11.0)
[2025-06-12 19:15] LABS: CALCIUM, SERUM 8.8 mg/dL (8.5-10.1); CREATININE 1.5 mg/dL (0.6-1.3); SODIUM SERUM 143 mmol/L (136-145); UREA NITROGEN, BLOOD 23 mg/dL (7-18)
[2025-06-12 19:24] LABS: LACTIC ACID 4.1 mmol/L (0.4-2.0)
[2025-06-12 19:29] LABS: ASPARTATE AMINOTRANSFERASE 48 U/L (15-37); TOTAL PROTEIN, SERUM 6.7 g/dL (6.4-8.2)
[2025-06-12 19:42] LABS: APPEARANCE,URINE SLIGHTLY CLOUDY (CLEAR); BLOOD, URINE 1+ Ery/uL (NEGATIVE); LEUKOCYTE ESTERASE ,URINE TRACE (NEGATIVE); NITRITE, URINE NEGATIVE (NEGATIVE); UGLUCOSE NEGATIVE (NEGATIVE)
[2025-06-12 19:49] LABS: INR 1.29 (0.91-1.10)
[2025-06-12] MEDS: IV NS 0.9% 1,000 ML BAG IV ONE (20:00)
[2025-06-12 20:02] LABS: ADD URINE CULTURE YES
[2025-06-12 20:03] LABS: SQUAMOUS EPITHELIAL CELL,UR 0-2 /HPF (None Seen)
[2025-06-12] MEDS ORDERED: LACTULOSE 10 G/15 ML UDC (PYXIS) ONE (20:25)
[2025-06-12] MEDS: LACTULOSE 10 G/15 ML UDC (PYXIS) PR ONE (20:30)
[2025-06-12] MEDS ORDERED: MAGNESIUM HYDROXIDE 30 ML UDC NG PRN (21:30)
[2025-06-12] MEDS ORDERED: DOSING PER PHARMACY-VANCOMYCIN IV XX PRN (21:30)
[2025-06-12] MEDS ORDERED: ACETAMINOPHEN 650 MG/SUPP.RECT RC PRN (21:30)
[2025-06-12] MEDS ORDERED: Z GUARD REMEDY 4 OZ OINT TP PRN (21:30)
[2025-06-12] MEDS ORDERED: MAG HYDROX/AL HYDROX/SIMETH 30 ML UDC NG PRN (21:30)
[2025-06-12] MEDS ORDERED: ONDANSETRON HCL/PF 4 MG/2 ML VIAL IVP PRN (21:30)
[2025-06-12] MEDS: IV D5 LR 1,000 ML IV ONE (23:20)
[2025-06-13] VITALS: BP 115/94; TEMP 98.7; O2SAT 96
[2025-06-13] MEDS: VANCOMYCIN 1 GM in IV NS 0.9% 250 ML IV ONE (00:13)
[2025-06-13] MEDS ORDERED: CEFEPIME 1 GM VIAL ONE (00:14)
[2025-06-13] MEDS: CEFEPIME 2 GM in IV D5W 100 ML IV SCH (00:32)
[2025-06-13] MEDS: VANCOMYCIN 1 GM /D5W 250 ML PB IV ONE (00:35)
[2025-06-13 04:00] VITALS: BP 113/86; TEMP 98.1; O2SAT 99
[2025-06-13 07:04] LABS: PLATELET COUNT (AUTO) 126 K/uL (150-450); RED BLOOD CELL COUNT(AUTO) 3.72 MIL/uL (4.5-6.0); RED CELL DISTRIBUTION WIDTH 17.0 % (11.5-15.0); WHITE BLOOD COUNT (AUTO) 6.9 K/uL (4.3-11.0)
[2025-06-13 07:18] LABS: CALCIUM, SERUM 8.1 mg/dL (8.5-10.1); CREATININE 1.0 mg/dL (0.6-1.3); PHOSPHORUS 2.6 mg/dL (2.5-4.9); SODIUM SERUM 143.0 mmol/L (136-145); UREA NITROGEN, BLOOD 21.0 mg/dL (7-18)
[2025-06-13 08:00] VITALS: BP_SYST 101; BP_SYST 137; BP_DIAS 76; BP_DIAS 95; TEMP 97.9; TEMP 98.1; O2SAT 100; O2SAT 99
[2025-06-13] MEDS ORDERED: CICL6.6S5 TP (08:21)
[2025-06-13] MEDS ORDERED: HONE44PA TP (08:21)
[2025-06-13] MEDS ORDERED: Magnesium 1GM/D5W 100ML PREMIX 100 ML IV SCH (09:30)
[2025-06-13] MEDS: PANTOPRAZOLE 40 MG/PACK PACK NG SCH (10:13)
[2025-06-13] MEDS: THIAMINE HCL 100 MG TABLET PO SCH (10:13)
[2025-06-13] MEDS: MULTIVITAMINS,THERAGRAN 1 UDTAB TABLET PO SCH (10:13)
[2025-06-13] MEDS: LACTULOSE 10 G/15 ML UDC (PYXIS) PO SCH (10:13)
[2025-06-13] MEDS: TAMSULOSIN 0.4 MG CAP.SR.24H PO SCH (10:13)
[2025-06-13] MEDS: ASCORBIC ACID 500 MG TABLET PO SCH (10:14)
[2025-06-13] MEDS: RIFAXIMIN 550 MG TABLET PO SCH (10:14)
[2025-06-13] MEDS: METOPROLOL TARTRATE 25 MG TABLET PO SCH (10:14)
[2025-06-13] MEDS: APIXABAN 5 MG TABLET PO SCH (10:15)
[2025-06-13] MEDS: MAGNESIUM OXIDE 400 MG TABLET GT ONE (10:19)
[2025-06-13] MEDS: LEVOTHYROXINE SODIUM 100 MCG TABLET PO SCH (10:26)
[2025-06-13] MEDS: PROSOURCE / PROSTAT (PYXIS) 30 ML UDC PO SCH (10:27)
[2025-06-13 12:00] VITALS: BP 101/76; TEMP 97.9; O2SAT 99
[2025-06-13] MEDS: VANCOMYCIN 1 GM in IV D5W 250 ML IV SCH (15:20)
[2025-06-13 16:00] VITALS: BP 99/68; TEMP 97.9; O2SAT 98
[2025-06-13 20:00] VITALS: BP 90/73; TEMP 97.9; O2SAT 95
[2025-06-13] MEDS ORDERED: VANCOMYCIN HCL 1.25 GM in IV D5W 250 ML IV SCH (21:00)
[2025-06-14] VITALS: BP 95/62; TEMP 98; O2SAT 95
[2025-06-14 04:00] VITALS: BP 103/72; TEMP 98; O2SAT 100
[2025-06-14 06:37] LABS: PLATELET COUNT (AUTO) 119 K/uL (150-450); RED BLOOD CELL COUNT(AUTO) 3.47 MIL/uL (4.5-6.0); RED CELL DISTRIBUTION WIDTH 16.5 % (11.5-15.0); WHITE BLOOD COUNT (AUTO) 5.0 K/uL (4.3-11.0)
[2025-06-14 06:58] LABS: CALCIUM, SERUM 8.1 mg/dL (8.5-10.1); CREATININE 0.9 mg/dL (0.6-1.3); SODIUM SERUM 144.0 mmol/L (136-145); UREA NITROGEN, BLOOD 16.0 mg/dL (7-18)
[2025-06-14 08:00] VITALS: BP 98/64; TEMP 98.6; O2SAT 94
[2025-06-14] MEDS: MAGNESIUM OXIDE 400 MG TABLET PO SCH ×2 (08:24→10:28)
[2025-06-14] MEDS: POTASSIUM CHLORIDE 20 MEQ POWDER PACKET PO SCH (10:28)
[2025-06-14 16:00] VITALS: BP 94/72; TEMP 99; O2SAT 96
[2025-06-14 20:00] VITALS: BP 96/73; TEMP 97.5; O2SAT 98
[2025-06-15] VITALS: BP 96/73; TEMP 97.5; O2SAT 98
[2025-06-15 04:00] VITALS: BP 94/70; TEMP 98.1; O2SAT 98
[2025-06-15 07:57] LABS: PLATELET COUNT (AUTO) 134 K/uL (150-450); RED BLOOD CELL COUNT(AUTO) 3.78 MIL/uL (4.5-6.0); RED CELL DISTRIBUTION WIDTH 16.5 % (11.5-15.0); WHITE BLOOD COUNT (AUTO) 5.6 K/uL (4.3-11.0)
[2025-06-15 08:00] VITALS: BP 94/77; TEMP 97.5
[2025-06-15 08:04] LABS: CALCIUM, SERUM 7.9 mg/dL (8.5-10.1); CREATININE 0.9 mg/dL (0.6-1.3); SODIUM SERUM 143.0 mmol/L (136-145); UREA NITROGEN, BLOOD 16.0 mg/dL (7-18)
[2025-06-15] MEDS: ZINC SULFATE 220 MG CAPSULE PO SCH (14:40)
[2025-06-15] MEDS: LACTULOSE 10 G/15 ML UDC (PYXIS) PO SCH (15:22)
[2025-06-15 16:00] VITALS: BP 94/75; TEMP 97.7; O2SAT 100
[2025-06-16 08:00] VITALS: BP 113/77; TEMP 97.7; O2SAT 95
[2025-06-16 10:18] LABS: PLATELET COUNT (AUTO) 121 K/uL (150-450); RED BLOOD CELL COUNT(AUTO) 3.36 MIL/uL (4.5-6.0); RED CELL DISTRIBUTION WIDTH 16.6 % (11.5-15.0); WHITE BLOOD COUNT (AUTO) 5.2 K/uL (4.3-11.0)
[2025-06-16 10:37] LABS: SERUM AMMONIA 88.0 umol/L (11-32)
[2025-06-16 10:42] LABS: ASPARTATE AMINOTRANSFERASE 44.0 U/L (15-37); CALCIUM, SERUM 7.8 mg/dL (8.5-10.1); CREATININE 0.9 mg/dL (0.6-1.3); SODIUM SERUM 140.0 mmol/L (136-145); TOTAL PROTEIN, SERUM 5.4 g/dL (6.4-8.2); UREA NITROGEN, BLOOD 16.0 mg/dL (7-18)
[2025-06-16] MEDS ORDERED: LACT10SO29 PO (13:00)
[2025-06-16 16:00] VITALS: BP 114/77; TEMP 98.1; O2SAT 92
[2025-06-16 18:07] VITALS: BP 114/77
== END 2025-06-16 21:58 | DRG 441 ==
LOC: ER 18:34 → TELE1 22:16 → MEDSG1 06-14 09:37
PROVIDERS: ADMIT Registered Nurse Psychiatric/Mental Health; ATTEND Nurse Practitioner Family
DX: K76.82 Hepatic encephalopathy (principal); G93.41 Metabolic encephalopathy; N17.0 Acute kidney failure with tubular necrosis; I13.0 Hypertensive heart and chronic kidney disease with heart failure and stage 1 through stage 4 chronic kidney disease, or unspecified chronic kidney disease; I50.22 Chronic systolic (congestive) heart failure; N13.8 Other obstructive and reflux uropathy; E72.20 Disorder of urea cycle metabolism, unspecified; I42.9 Cardiomyopathy, unspecified; K70.30 Alcoholic cirrhosis of liver without ascites; Z79.01 Long term (current) use of anticoagulants; Z79.899 Other long term (current) drug therapy; Z79.890 Hormone replacement therapy; Z95.0 Presence of cardiac pacemaker; N40.1 Benign prostatic hyperplasia with lower urinary tract symptoms; Z86.73 Personal history of transient ischemic attack (TIA), and cerebral infarction without residual deficits; I48.91 Unspecified atrial fibrillation; F10.11 Alcohol abuse, in remission; E80.6 Other disorders of bilirubin metabolism; N18.30 Chronic kidney disease, stage 3 unspecified; E03.9 Hypothyroidism, unspecified; J44.9 Chronic obstructive pulmonary disease, unspecified; E86.0 Dehydration; Z20.822 Contact with and (suspected) exposure to COVID-19; K40.90 Unilateral inguinal hernia, without obstruction or gangrene, not specified as recurrent; N05.9 Unspecified nephritic syndrome with unspecified morphologic changes; K80.50 Calculus of bile duct without cholangitis or cholecystitis without obstruction
CPT/HCPCS: 31720; 36415; 70450-TC; 71045-TC; 76700-TC; 80048-TC; 80053-TC; 80076-TC; 80202-TC; 81001; 82140-TC; 83605-TC; 83735-TC; 84100-TC; 84443-TC; 85025-TC; 85730-TC; 87040-TC; 87081-TC; 87086-TC; 92526; 92611; 97110-TC; 97116-TC; 97530-TC; A4223; G0378; J0692; J3373; J3490; J7030; J7040; J7050; J7060

== ENCOUNTER 2025-07-22 08:53 | Inpatient (IN) | payer MEDICARE, MEDICAID ==
[~2025-07-22] VITALS: Ht 172.7 cm; Wt 85.3 kg
[~2025-07-22 08:53] MED LIST changes: -ACET-73 PO; -ASCO500T10 PO; +CICL6.6S5 TP; +HONE44PA TP; -LACT10SO3 PO; -MULT-594 PO
[2025-07-22 09:57] LABS: PLATELET COUNT (AUTO) 151 K/uL (150-450); RED BLOOD CELL COUNT(AUTO) 3.49 MIL/uL (4.5-6.0); RED CELL DISTRIBUTION WIDTH 15.9 % (11.5-15.0); WHITE BLOOD COUNT (AUTO) 7.4 K/uL (4.3-11.0)
[2025-07-22 10:05] LABS: INR 1.3 (0.91-1.10)
[2025-07-22 10:06] LABS: CALCIUM, SERUM 7.9 mg/dL (8.5-10.1); CREATININE 0.9 mg/dL (0.6-1.3); SODIUM SERUM 142 mmol/L (136-145); UREA NITROGEN, BLOOD 21 mg/dL (7-18)
[2025-07-22 10:11] LABS: ASPARTATE AMINOTRANSFERASE 34 U/L (15-37); TOTAL PROTEIN, SERUM 6.2 g/dL (6.4-8.2)
[2025-07-22 10:12] LABS: ALCOHOL, BLOOD < 3 mg/dL (0-10); SERUM AMMONIA 147 umol/L (11-32)
[2025-07-22] MEDS: LACTULOSE 10 G/15 ML UDC (PYXIS) PR ONE (13:42)
[2025-07-22 14:00] VITALS: BP 128/76; TEMP 97.3; O2SAT 98
[2025-07-22 16:00] VITALS: BP 129/62; TEMP 97.8; O2SAT 98
[2025-07-22] MEDS ORDERED: ONDANSETRON HCL/PF 4 MG/2 ML VIAL IVP PRN (16:30)
[2025-07-22 16:32] LABS: ABG BASE EXCESS -1.0 mmol/L (-2.0-3.0); ABG OXYGEN SATURATION 96.3 % (94.0-98.0); ABG PCO2 31.7 mmHg (35.0-48.0); ABG PH 7.460 (7.350-7.450); ABG PO2 88.1 mmHg (83.0-108.0); ABG TOTAL HEMOGLOBIN 12.1 G/dL (13.5-17.5); FRACTIONATED INSPIRED OXYGEN 21.0 %; SITE, ABG RIGHT RADIAL
[2025-07-22 16:36] VITALS: BP 129/62; TEMP 97.8; O2SAT 98
[2025-07-22] MEDS ORDERED: LACTULOSE 10 G/15 ML UDC (PYXIS) PR SCH (18:00)
[2025-07-22] MEDS: PANTOPRAZOLE 40 MG VIAL IV SCH (18:25)
[2025-07-22] MEDS: LACTULOSE 10 G/15 ML UDC (PYXIS) NG SCH (18:25)
[2025-07-22] MEDS: ACETAMINOPHEN 325 MG TABLET PO PRN (18:26)
[2025-07-22 20:42] VITALS: BP 122/73; TEMP 98.2; O2SAT 97
[2025-07-22] MEDS: HEPARIN SODIUM, PORCINE 5000 UNITS/1 ML VIAL SQ SCH (20:50)
[2025-07-22] MEDS ORDERED: APIXABAN 5 MG TABLET PO SCH (21:00)
[2025-07-22] MEDS: RIFAXIMIN 550 MG TABLET PO SCH (21:29)
[2025-07-22] MEDS: METOPROLOL TARTRATE 25 MG TABLET PO SCH (21:30)
[2025-07-22] MEDS: POLYETHYLENE GLYCOL 3350 17 GM POWD.PACK PO SCH (21:30)
[2025-07-23] VITALS (17 sets, daily range): BP systolic 124–136; BP diastolic 73–86; TEMP 97.5–98.7; O2SAT 95–100
[2025-07-23] MEDS: LEVOTHYROXINE SODIUM 100 MCG TABLET PO SCH (06:34)
[2025-07-23] MEDS: THIAMINE HCL 100 MG TABLET PO SCH (08:31)
[2025-07-23] MEDS: risperiDONE-M 0.5 MG TAB.RAPDIS PO SCH (08:31)
[2025-07-23] MEDS: TAMSULOSIN 0.4 MG CAP.SR.24H PO SCH (08:32)
[2025-07-23] MEDS: PROSOURCE / PROSTAT (PYXIS) 30 ML UDC GT SCH (08:32)
[2025-07-23] MEDS: APIXABAN 5 MG TABLET PO SCH (08:33)
[2025-07-23] MEDS ORDERED: PANTOPRAZOLE 40 MG/PACK PACK GT SCH (09:00)
[2025-07-23] MEDS ORDERED: APIXABAN 5 MG TABLET PO SCH (09:00)
[2025-07-23] MEDS: ACETYLCYSTEINE 10% SOLN 400 MG/4 ML VIAL NEB SCH (11:00)
[2025-07-23] MEDS: IPRATROPIUM NEB FS 0.5 MG/2.5 ML AMPUL.NEB NEB SCH (11:00)
[2025-07-23] MEDS: ALBUTEROL HALF STRENGTH 1.25 MG/3 ML VIAL.NEB NEB SCH (11:00)
[2025-07-23 11:06] LABS: PLATELET COUNT (AUTO) 151 K/uL (150-450); RED BLOOD CELL COUNT(AUTO) 3.63 MIL/uL (4.5-6.0); RED CELL DISTRIBUTION WIDTH 16.4 % (11.5-15.0); WHITE BLOOD COUNT (AUTO) 5.9 K/uL (4.3-11.0)
[2025-07-23] MEDS: NEOMY SULF/BACITRAC ZN/POLY 15 GM TUBE TP SCH (11:13)
[2025-07-23 11:27] LABS: SERUM AMMONIA 85.0 umol/L (11-32)
[2025-07-23 11:32] LABS: CALCIUM, SERUM 7.9 mg/dL (8.5-10.1); CREATININE 1.0 mg/dL (0.6-1.3); PHOSPHORUS 3.3 mg/dL (2.5-4.9); SODIUM SERUM 146.0 mmol/L (136-145); UREA NITROGEN, BLOOD 20.0 mg/dL (7-18)
[2025-07-24] VITALS (34 sets, daily range): BP systolic 117–142; BP diastolic 54–92; TEMP 98.1–98.8; O2SAT 95–100
[2025-07-24 05:00] LABS: PLATELET COUNT (AUTO) 154 K/uL (150-450); RED BLOOD CELL COUNT(AUTO) 3.32 MIL/uL (4.5-6.0); RED CELL DISTRIBUTION WIDTH 15.5 % (11.5-15.0); WHITE BLOOD COUNT (AUTO) 6.5 K/uL (4.3-11.0)
[2025-07-24 05:15] LABS: CALCIUM, SERUM 8.2 mg/dL (8.5-10.1); CREATININE 1.0 mg/dL (0.6-1.3); PHOSPHORUS 3.0 mg/dL (2.5-4.9); SODIUM SERUM 147.0 mmol/L (136-145); UREA NITROGEN, BLOOD 17.0 mg/dL (7-18)
[2025-07-24] MEDS: PANTOPRAZOLE 40 MG TABLET.DR PO SCH (08:16)
[2025-07-24] MEDS: FLUOCINONIDE 0.05% CREAM 60 GM TUBE TP SCH (08:19)
[2025-07-24] MEDS: LACTULOSE UDC 200 G in SODIUM CHLORIDE IRRIG SOLUTION 400 ML IR SCH (19:30)
[2025-07-25] VITALS (28 sets, daily range): BP systolic 92–145; BP diastolic 45–84; TEMP 98–98.7; O2SAT 98–100
[2025-07-25 05:06] LABS: PLATELET COUNT (AUTO) 136 K/uL (150-450); RED BLOOD CELL COUNT(AUTO) 3.11 MIL/uL (4.5-6.0); RED CELL DISTRIBUTION WIDTH 15.5 % (11.5-15.0); WHITE BLOOD COUNT (AUTO) 5.2 K/uL (4.3-11.0)
[2025-07-25 05:25] LABS: CALCIUM, SERUM 8.0 mg/dL (8.5-10.1); CREATININE 1.0 mg/dL (0.6-1.3); PHOSPHORUS 3.0 mg/dL (2.5-4.9); SODIUM SERUM 146.0 mmol/L (136-145); UREA NITROGEN, BLOOD 14.0 mg/dL (7-18)
[2025-07-25] MEDS: Magnesium 1GM/D5W 100ML PREMIX 100 ML IV SCH (11:24)
[2025-07-25] MEDS: LORAZEPAM 1 MG TABLET PO PRN (16:13)
[2025-07-26] VITALS (32 sets, daily range): BP systolic 92–128; BP diastolic 62–95; TEMP 97.7–98.4; O2SAT 98–100
[2025-07-26 04:51] LABS: PLATELET COUNT (AUTO) 131 K/uL (150-450); RED BLOOD CELL COUNT(AUTO) 3.11 MIL/uL (4.5-6.0); RED CELL DISTRIBUTION WIDTH 15.6 % (11.5-15.0); WHITE BLOOD COUNT (AUTO) 5.6 K/uL (4.3-11.0)
[2025-07-26 05:02] LABS: CALCIUM, SERUM 7.7 mg/dL (8.5-10.1); CREATININE 1.0 mg/dL (0.6-1.3); PHOSPHORUS 2.5 mg/dL (2.5-4.9); SODIUM SERUM 142.0 mmol/L (136-145); UREA NITROGEN, BLOOD 13.0 mg/dL (7-18)
[2025-07-26] MEDS: POTASSIUM CHLORIDE 20 MEQ POWDER PACKET PO ONE (10:31)
[2025-07-27] VITALS (17 sets, daily range): BP systolic 90–116; BP diastolic 58–90; TEMP 97.4–98.7; O2SAT 95–100
[2025-07-27 04:19] LABS: PLATELET COUNT (AUTO) 167 K/uL (150-450); RED BLOOD CELL COUNT(AUTO) 3.56 MIL/uL (4.5-6.0); RED CELL DISTRIBUTION WIDTH 16.1 % (11.5-15.0); WHITE BLOOD COUNT (AUTO) 6.4 K/uL (4.3-11.0)
[2025-07-27 04:29] LABS: CALCIUM, SERUM 7.7 mg/dL (8.5-10.1); CREATININE 1.0 mg/dL (0.6-1.3); PHOSPHORUS 3.0 mg/dL (2.5-4.9); SODIUM SERUM 144.0 mmol/L (136-145); UREA NITROGEN, BLOOD 12.0 mg/dL (7-18)
[2025-07-27] MEDS: DILTIAZEM HCL 25 MG IV IV ONE (10:18)
[2025-07-27] MEDS: DIGOXIN INJ 0.5 MG/2 ML AMPUL IV SCH (12:00)
[2025-07-27] MEDS: METOPROLOL TARTRATE 25 MG TABLET PO SCH (12:00)
[2025-07-28] VITALS (19 sets, daily range): BP systolic 100–139; BP diastolic 68–97; TEMP 98.6–99.1; O2SAT 96–100
[2025-07-28 07:39] LABS: PLATELET COUNT (AUTO) 186 K/uL (150-450); RED BLOOD CELL COUNT(AUTO) 4.12 MIL/uL (4.5-6.0); RED CELL DISTRIBUTION WIDTH 16.4 % (11.5-15.0); WHITE BLOOD COUNT (AUTO) 6.2 K/uL (4.3-11.0)
[2025-07-28 07:58] LABS: SERUM AMMONIA 137.0 umol/L (11-32)
[2025-07-28 08:42] LABS: ASPARTATE AMINOTRANSFERASE 51.0 U/L (15-37); CALCIUM, SERUM 7.6 mg/dL (8.5-10.1); CREATININE 0.9 mg/dL (0.6-1.3); PHOSPHORUS 2.9 mg/dL (2.5-4.9); SODIUM SERUM 143.0 mmol/L (136-145); TOTAL PROTEIN, SERUM 6.2 g/dL (6.4-8.2); UREA NITROGEN, BLOOD 13.0 mg/dL (7-18)
[2025-07-28] MEDS: DIGOXIN ELIX UDC 0.25 MG/5 ML UDC GT SCH (13:00)
[2025-07-28] MEDS: PERMETHRIN 5% CRM 60 GM TUBE TP ONE (13:25)
[2025-07-29] VITALS (13 sets, daily range): BP systolic 101–125; BP diastolic 60–84; TEMP 97.3–98.2; O2SAT 94–100
[2025-07-29 07:53] LABS: ASPARTATE AMINOTRANSFERASE 34.0 U/L (15-37); CALCIUM, SERUM 7.7 mg/dL (8.5-10.1); CREATININE 1.0 mg/dL (0.6-1.3); PHOSPHORUS 2.9 mg/dL (2.5-4.9); PLATELET COUNT (AUTO) 189 K/uL (150-450); RED BLOOD CELL COUNT(AUTO) 3.67 MIL/uL (4.5-6.0); RED CELL DISTRIBUTION WIDTH 16.4 % (11.5-15.0); SODIUM SERUM 145.0 mmol/L (136-145); TOTAL PROTEIN, SERUM 6.0 g/dL (6.4-8.2); UREA NITROGEN, BLOOD 15.0 mg/dL (7-18); WHITE BLOOD COUNT (AUTO) 6.1 K/uL (4.3-11.0)
[2025-07-29 08:45] LABS: SERUM AMMONIA 115.0 umol/L (11-32)
[2025-07-30] VITALS (10 sets, daily range): BP systolic 119–124; BP diastolic 65–67; TEMP 99; O2SAT 97–99
[2025-07-30 06:02] LABS: PLATELET COUNT (AUTO) 167 K/uL (150-450); RED BLOOD CELL COUNT(AUTO) 3.37 MIL/uL (4.5-6.0); RED CELL DISTRIBUTION WIDTH 16.3 % (11.5-15.0); WHITE BLOOD COUNT (AUTO) 6.7 K/uL (4.3-11.0)
[2025-07-30 06:08] LABS: CALCIUM, SERUM 7.7 mg/dL (8.5-10.1); CREATININE 1.1 mg/dL (0.6-1.3); PHOSPHORUS 3.0 mg/dL (2.5-4.9); SERUM AMMONIA 106.0 umol/L (11-32); SODIUM SERUM 147.0 mmol/L (136-145); UREA NITROGEN, BLOOD 18.0 mg/dL (7-18)
[2025-07-30] MEDS ORDERED: LACT10SO58 PO (10:20)
== END 2025-07-30 15:32 | DRG 441 ==
LOC: ER 09:01 → MED 12:52 → TELE 07-23 02:57 → ICU 07-23 15:07 → MED 07-27 14:55 → TELE 07-27 18:27 → MED 07-29 11:35
PROVIDERS: ADMIT Nurse Practitioner Acute Care; ATTEND Nurse Practitioner Family
DX: K76.82 Hepatic encephalopathy (principal); E43 Unspecified severe protein-calorie malnutrition; L89.153 Pressure ulcer of sacral region, stage 3; G93.41 Metabolic encephalopathy; K70.30 Alcoholic cirrhosis of liver without ascites; E72.20 Disorder of urea cycle metabolism, unspecified; D68.59 Other primary thrombophilia; E88.09 Other disorders of plasma-protein metabolism, not elsewhere classified; I11.0 Hypertensive heart disease with heart failure; I50.9 Heart failure, unspecified; I48.91 Unspecified atrial fibrillation; E66.01 Morbid (severe) obesity due to excess calories; E03.9 Hypothyroidism, unspecified; F10.21 Alcohol dependence, in remission; D63.8 Anemia in other chronic diseases classified elsewhere; B86 Scabies; K21.9 Gastro-esophageal reflux disease without esophagitis; Z79.01 Long term (current) use of anticoagulants; Z87.440 Personal history of urinary (tract) infections; Z95.0 Presence of cardiac pacemaker; Z68.28 Body mass index [BMI] 28.0-28.9, adult; L98.8 Other specified disorders of the skin and subcutaneous tissue; S40.812A Abrasion of left upper arm, initial encounter; X58.XXXA Exposure to other specified factors, initial encounter; Y93.9 Activity, unspecified; Y92.129 Unspecified place in nursing home as the place of occurrence of the external cause
CPT/HCPCS: 31720; 36415; 36600; 70450-TC; 71045-TC; 80048-TC; 80076-TC; 82140-TC; 82803-TC; 82962-TC; 83735-TC; 84100-TC; 85025-TC; 85730-TC; 87081-TC; 94760-TC; 94762-TC; 94799-TC; 97110-TC; 97112-TC; 97530-TC; A4217; A4223; A6213; A6253; A6254; G0378; G0480; J1160; J1644; J2470; J3475; J3490; J7050